=== PATIENT | male | born 1970 | race Caucasian/White ===

== ENCOUNTER 2019-11-30 18:23 | Emergency (ER) | payer SELFPAY ==
[~2019-11-30] VITALS: Ht 170.2 cm; Wt 78.4 kg
--- NOTE | 2019-11-30 19:04 | NUR ---
TO ROOM FROM LOBBY. NAD.
[2019-11-30 19:12] LABS: ALANINE AMINOTRANSFERASE 32 U/L (12-78); ANION GAP 7 mmol/L (5-15); CALCIUM 9.1 mg/dL (8.5-10.1); CHLORIDE 104 mmol/L (98-107); CREATININE 0.97 mg/dL (0.7-1.3)
[2019-11-30 19:13] LABS: BASOPHILS % (AUTO) 0 % (0-1); EOSINOPHILS % (AUTO) 1 % (1-7); LYMPHOCYTES % (AUTO) 13 % (22-44); MEAN CORPUSCULAR HEMOGLOBIN 31.6 pg (27.5-34.5); MEAN CORPUSCULAR HGB CONC 33.9 g/dL (33.2-36.2); MEAN PLATELET VOLUME 8.6 fL (7.4-10.4); MONOCYTES % (AUTO) 9 % (2-9); NEUTROPHILS % (AUTO) 77 % (42-75); PLATELET COUNT 314 x10^3/uL (130-400); RED BLOOD COUNT 5.06 x10^6/uL (4.38-5.82); RED CELL DISTRIBUTION WIDTH 13.7 % (9.4-14.8)
[2019-11-30 19:14] LABS: ALKALINE PHOSPHATASE 118 U/L (45-117); BILIRUBIN,TOTAL 0.7 mg/dL (0.2-1.0); MD NO
--- NOTE | 2019-11-30 19:16 | NUR ---
REPORT OF PT FROM FRANCO CHAVEZ AND ASSUMING CARE OF PT AT THIS TIME.
[2019-11-30] MEDS ORDERED: SODIUM CHLORIDE 0.9% 1,000ML IVBOLUS ONE (20:00)
[2019-11-30] MEDS ORDERED: SODIUM CHLORIDE FLUSH 10ML SYR IVF ONE (20:00)
[2019-11-30] MEDS ORDERED: ACETAMINOPHEN 325 MG TABLET PO ONE (20:00)
--- NOTE | 2019-11-30 20:09 | NUR ---
PT TO CT VIA [facility] AT THIS TIME. URINE COLLECTED AND SENT TO LAB.
--- NOTE | 2019-11-30 20:21 | NUR ---
PT BACK FROM CT VIA [facility] AT THIS TIME.
[2019-11-30 20:40] LABS: MICROSCOPIC NOT IND
[2019-11-30] MEDS ORDERED: OMNIPAQUE 350 MG/ML, 100ML BOTTLE ONE (21:28)
[2019-11-30] MEDS ORDERED: METRONIDAZOLE PMX 500MG/100ML 100 ML ONE (21:29)
[2019-11-30] MEDS ORDERED: CIPROFLOXACIN/PMX 400MG/200ML 200 ML ONE (21:29)
[2019-11-30] MEDS ORDERED: CIPROFLOXACIN/PMX 400MG/200ML 100 ML IVPB ONE (21:30)
[2019-11-30] MEDS ORDERED: METRONIDAZOLE PMX 500MG/100ML 100 ML IVPB ONE (21:30)
[2019-11-30] MEDS ORDERED: ACETAMINOPHEN 325 MG TABLET ONE (22:53)
--- NOTE | 2019-12-01 00:01 | NUR ---
PT D/C WITH D/C SUMMARY AND SCRIPTS. ALL QUESTIONS ANSWERED. PT AMBULATES TO REGISTRATION DESK WITH STEADY GAIT FOR D/C HOME. PT DENIES ANY OTHER NEEDS PERTAINING TO VISIT.
[2019-12-01 00:02] VITALS: BP 112/73
== END 2019-12-01 00:28 | disposition home or self-care (01) ==
LOC: ED 21:40
DX: K57.92 Diverticulitis of intestine, part unspecified, without perforation or abscess without bleeding (principal); R10.31 Right lower quadrant pain; R10.13 Epigastric pain; J45.909 Unspecified asthma, uncomplicated
CPT/HCPCS: 36415; 74021; 74177; 80053; 81003; 83690; 85025; 96361; 96365; 96368; 99285; J0744; J7030; Q9967